=== PATIENT | male | born 1945 | race Caucasian/White ===

== ENCOUNTER 2020-03-06 09:44 | Emergency (ER) | payer MEDICARE, OTHER ==
[2020-03-06 10:44] LABS: HEMOGLOBIN 15.3 gm/dl (14.0-17.5); RED BLOOD COUNT 4.97 M/UL (4.20-5.50); WHITE BLOOD COUNT 3.8 K/UL (4.5-11.0)
== END 2020-03-06 16:55 | disposition home or self-care (01) ==
LOC: ER1 09:44
PROVIDERS: Physician Assistant
DX: U07.1 COVID-19 (principal); R91.8 Other nonspecific abnormal finding of lung field; I10 Essential (primary) hypertension; E11.9 Type 2 diabetes mellitus without complications; J44.9 Chronic obstructive pulmonary disease, unspecified
CPT/HCPCS: 71045; 80053; 85025; 85379; 99284; M0239; Q9967

== ENCOUNTER → 2020-09-18 | Outpatient (CLI) | payer MEDICARE, OTHER | LOC: US 10:08 | DX: I71.4 Abdominal aortic aneurysm, without rupture (principal); R93.5 Abnormal findings on diagnostic imaging of other abdominal regions, including retroperitoneum | CPT/HCPCS: 93979 ==

== ENCOUNTER → 2021-01-30 | Outpatient (CLI) | payer MEDICARE, OTHER | LOC: OPSV 08:33 | DX: K51.90 Ulcerative colitis, unspecified, without complications (principal) | CPT/HCPCS: 96365; J3380; J7030 ==

== ENCOUNTER → 2021-02-13 | Outpatient (CLI) | payer MEDICARE, OTHER ==
[~2021-02-13] VITALS: Ht 185.4 cm; Wt 117.9 kg
== END ==
LOC: OPSV 08:23
DX: K51.90 Ulcerative colitis, unspecified, without complications (principal); Z88.8 Allergy status to other drugs, medicaments and biological substances
CPT/HCPCS: 96365; J3380; J7050

== ENCOUNTER → 2021-03-27 | Outpatient (CLI) | payer MEDICARE, OTHER ==
[~2021-03-27] VITALS: Ht 185.4 cm; Wt 117.9 kg
== END ==
LOC: OPSV 08:39
DX: K51.90 Ulcerative colitis, unspecified, without complications (principal)
CPT/HCPCS: 96365; J3380; J7050

== ENCOUNTER → 2021-04-26 | Outpatient (CLI) | payer MEDICARE, OTHER ==
[~2021-04-26] VITALS: Ht 185.4 cm; Wt 117.9 kg
== END ==
LOC: OPSV 04-24 08:00
DX: K51.90 Ulcerative colitis, unspecified, without complications (principal)
CPT/HCPCS: 96365; J3380; J7050

== ENCOUNTER → 2021-06-21 | Outpatient (CLI) | payer MEDICARE, OTHER | LOC: OPSV 08:49 | DX: K51.90 Ulcerative colitis, unspecified, without complications (principal) | CPT/HCPCS: 96365; J3380; J7050 ==

== ENCOUNTER → 2021-08-08 | Outpatient (CLI) | payer MEDICARE, OTHER ==
[2021-08-08 11:15] LABS: HEMOGLOBIN 13.7 gm/dl (14.0-17.5); RED BLOOD COUNT 4.43 M/UL (4.20-5.50); WHITE BLOOD COUNT 6.1 K/UL (4.5-11.0)
[2021-08-09 09:14] LABS: VITAMIN D, 25-HYDROXY 37.3 ng/mL (30.0-100.0)
[2021-08-09 11:14] LABS: C-PEPTIDE, SERUM 4.2 ng/mL (1.1-4.4)
[2021-08-13 14:09] LABS: QUANTIFERON MITOGEN VALUE >10.00 IU/mL (.); QUANTIFERON NIL VALUE 0.01 IU/mL (.); QUANTIFERON TB1 AG VALUE 1.02 IU/mL (.); QUANTIFERON TB2 AG VALUE 0.97 IU/mL (.); QUANTIFERON-TB GOLD PLUS Positive (Negative)
== END ==
LOC: RAD 09:40
PROVIDERS: Family Medicine; Nurse Practitioner Family
DX: Z12.5 Encounter for screening for malignant neoplasm of prostate (principal); Z13.828 Encounter for screening for other musculoskeletal disorder; Z13.89 Encounter for screening for other disorder; E78.5 Hyperlipidemia, unspecified; I12.9 Hypertensive chronic kidney disease with stage 1 through stage 4 chronic kidney disease, or unspecified chronic kidney disease; E11.22 Type 2 diabetes mellitus with diabetic chronic kidney disease; N18.9 Chronic kidney disease, unspecified; E55.9 Vitamin D deficiency, unspecified; D12.6 Benign neoplasm of colon, unspecified; M25.531 Pain in right wrist
CPT/HCPCS: 36415; 73100; 80053; 80061; 83036; 84439; 84443; 84550; 84681; 85025; 85652; 86038; 86140; 86431; G0103

== ENCOUNTER → 2021-08-15 | Outpatient (CLI) | payer MEDICARE, OTHER | LOC: RAD 08:09 | DX: R76.12 Nonspecific reaction to cell mediated immunity measurement of gamma interferon antigen response without active tuberculosis (principal) | CPT/HCPCS: 71046 ==

== ENCOUNTER → 2021-08-16 | Outpatient (CLI) | payer MEDICARE, OTHER ==
[~2021-08-16] VITALS: Ht 185.4 cm; Wt 117.9 kg
== END ==
LOC: OPSV 09:00
DX: K51.90 Ulcerative colitis, unspecified, without complications (principal); Z12.5 Encounter for screening for malignant neoplasm of prostate; Z13.828 Encounter for screening for other musculoskeletal disorder; Z13.89 Encounter for screening for other disorder; E11.9 Type 2 diabetes mellitus without complications; E78.5 Hyperlipidemia, unspecified; I10 Essential (primary) hypertension; E55.9 Vitamin D deficiency, unspecified
CPT/HCPCS: 82043; 96365; J3380; J7050

== ENCOUNTER 2021-09-09 08:08 | Emergency (ER) | payer MEDICARE, OTHER ==
[2021-09-09 08:48] LABS: HEMOGLOBIN 14.1 gm/dl (14.0-17.5); RED BLOOD COUNT 4.55 M/UL (4.20-5.50); WHITE BLOOD COUNT 8.3 K/UL (4.5-11.0)
[2021-09-09 09:07] LABS: BUN/CREATININE RATIO 18 (0-10)
== END 2021-09-09 11:42 | disposition home or self-care (01) ==
LOC: ER1 08:08
PROVIDERS: Emergency Medicine
DX: U07.1 COVID-19 (principal); Z23 Encounter for immunization; E11.9 Type 2 diabetes mellitus without complications; J44.9 Chronic obstructive pulmonary disease, unspecified; I10 Essential (primary) hypertension; E78.5 Hyperlipidemia, unspecified
CPT/HCPCS: 0240U; 36600; 71045; 80053; 82550; 82553; 82803; 83880; 84484; 85025; 87040; 93005; 94664; 99285; M0222

== ENCOUNTER → 2021-10-11 | Outpatient (CLI) | payer MEDICARE, OTHER | LOC: OPSV 08:34 | DX: K51.90 Ulcerative colitis, unspecified, without complications (principal) | CPT/HCPCS: 96365; J3380; J7050 ==